=== PATIENT | male | born 1990 | race Hispanic/Latino ===

== ENCOUNTER 2017-07-10 22:26 | Emergency (ER) | payer SELFPAY ==
--- NOTE | 2017-07-10 22:55 | ED PDOC ---
HPI: Psych/Substance Abuse Time Seen by Provider: 07/10/17 22:39 Chief Complaint (Nursing): Alcohol Ingestion Chief Complaint (Provider): Alcohol abuse History Per: Patient History/Exam Limitations: no limitations Onset/Duration Of Symptoms: Days Current Symptoms Are (Timing): Still Present Additional Complaint(s): 27 yo male with no medical problems and no allergies brought in by EMS for evaluation. Pt denies complaint. Pt cooperative. Pt reports drinking alcohol today and denies drug use. Pt apologetic in ER. According to EMS police called them because patient had unsteady gait. Past Medical History Reviewed: Historical Data, Nursing Documentation, Vital Signs Vital Signs: Last Vital Signs Temp 97.6 F 07/10/17 22:29 Pulse 91 H 07/10/17 22:29 Resp 16 07/10/17 22:29 BP 153/92 H 07/10/17 22:29 Pulse Ox 97 07/10/17 22:29 - Medical History PMH: No Chronic Diseases - Surgical History Surgical History: No Surg Hx - Family History Family History: States: No Known Family Hx - Living Arrangements Living Arrangements: With Family - Allergies Allergies/Adverse Reactions: Allergies Allergy/AdvReac Type Severity Reaction Status Date / Time Unobtainable Allergy Verified 07/10/17 22:28 Review of Systems ROS Statement: Except As Marked, All Systems Reviewed And Found Negative Constitutional: Negative for: Fever, Chills Cardiovascular: Negative for: Chest Pain Respiratory: Negative for: Cough, Shortness of Breath Gastrointestinal: Negative for: Nausea, Vomiting, Abdominal Pain Physical Exam - Reviewed Nursing Documentation Reviewed: Yes Vital Signs Reviewed: Yes - Physical Exam Appears: Positive for: Well, Non-toxic, No Acute Distress Head Exam: Positive for: ATRAUMATIC, NORMAL INSPECTION, NORMOCEPHALIC Skin: Positive for: Normal Color, Warm, DRY Eye Exam: Positive for: EOMI, PERRL, Conjunctival injection. Negative for: Normal appearance ENT: Positive for: Normal ENT Inspection Neck: Positive for: Normal, Painless ROM Cardiovascular/Chest: Positive for: Regular Rate, Rhythm Respiratory: Positive for: Normal Breath Sounds. Negative for: Accessory Muscle Use, Respiratory Distress Gastrointestinal/Abdominal: Positive for: Normal Exam, Bowel Sounds, Soft Back: Positive for: Normal Inspection Extremity: Positive for: Normal ROM Neurologic/Psych: Positive for: Alert, Oriented - ECG O2 Sat by Pulse Oximetry: 97 Medical Decision Making Medical Decision Makin - Pt rolled over in bed. Denies complaints. 0313 - Pt up and out of bed with steady gait. Pt is alert and oriented. Disposition - Clinical Impression Clinical Impression: Alcohol abuse - Patient ED Disposition Is Patient to be Admitted: No Counseled Patient/Family Regarding: Diagnosis, Need For Followup - Disposition Disposition: Routine/Home Disposition Time: 03:13 Condition: STABLE Instructions: Effects of Alcohol on Your Health Forms: [employer] (Greek)
[2017-07-11 03:37] VITALS: BP 141/76; PULSE 100; RESP 18; TEMP 98.2; O2SAT 100
== END 2017-07-11 03:40 | disposition home or self-care (01) ==
LOC: H.ER 22:26
DX: F10.10 Alcohol abuse, uncomplicated (principal)